=== PATIENT | female | born 1995 | race Caucasian/White ===

== ENCOUNTER 2017-04-13 22:49 | Emergency (ER) | payer OTHER ==
[~2017-04-13] VITALS: Ht 152.4 cm; Wt 59.5 kg
[2017-04-13 22:56] VITALS: TEMP 98.6
[2017-04-13] MEDS ORDERED: PRENATAL (23:00)
[2017-04-13] MEDS ORDERED: PHENERGAN 25 TA25 MG PO (23:59)
[2017-04-14 00:49] LABS: PH 6 (5-8); URINE APPEARANCE Clear; URINE BACTERIA Rare /hpf; URINE BILIRUBIN Negative (NEGATIVE); URINE BLOOD Negative (NEGATIVE); URINE COLOR Yellow; URINE GLUCOSE Negative (NEGATIVE); URINE KETONE Negative (NEGATIVE); URINE RBC 0-2 /hpf; URINE UROBILINOGEN Negative (NEGATIVE)
[2017-04-14] MEDS ORDERED: PHENERGAN25 MG RC ×2 (01:19→01:32)
[2017-04-14 01:30] VITALS: BP 108/60; PULSE 89
[2017-04-14] MEDS ORDERED: PHENERGAN 25 TA25 MG PO (01:32)
== END 2017-04-14 01:30 | disposition home or self-care (01) ==
LOC: COL.ER 22:49
PROVIDERS: Emergency Medicine
DX: O99.89 Other specified diseases and conditions complicating pregnancy, childbirth and the puerperium (principal); K22.6 Gastro-esophageal laceration-hemorrhage syndrome; Z3A.16 16 weeks gestation of pregnancy
CPT/HCPCS: J2405; J2550; J7030